=== PATIENT | male | born 1930 | race Caucasian/White ===

== ENCOUNTER → 2019-12-19 | Outpatient (CLI) | payer OTHER ==
[~2019-12-19] MED LIST: ASPIRIN81 M2 PO; CEPHALEXIN 500500 M1 PO; DILTIAZEM 24HR240 M1 PO; FLECAINIDE ACE100 MG PO; LISINOPRIL10 MG PO; PACERONE 200 M200 M1 PO; SIMVASTATIN40 MG PO; XARELTO20 MG PO
== END ==
LOC: SJCVC 14:34
PROVIDERS: ATTEND Internal Medicine
DX: R94.31 Abnormal electrocardiogram [ECG] [EKG] (principal); R00.1 Bradycardia, unspecified; I44.0 Atrioventricular block, first degree; E78.5 Hyperlipidemia, unspecified; I48.91 Unspecified atrial fibrillation

== ENCOUNTER → 2020-01-21 | Outpatient (CLI) | payer OTHER | LOC: SJCVCIMAG 08:17 | PROVIDERS: ATTEND Internal Medicine | DX: I08.8 Other rheumatic multiple valve diseases (principal); I11.9 Hypertensive heart disease without heart failure; I77.810 Thoracic aortic ectasia; R00.1 Bradycardia, unspecified; I48.91 Unspecified atrial fibrillation; E11.9 Type 2 diabetes mellitus without complications; E78.5 Hyperlipidemia, unspecified; Z87.891 Personal history of nicotine dependence ==

== ENCOUNTER → 2020-06-02 | Outpatient (CLI) | payer OTHER | LOC: SJCVC 10:55 | PROVIDERS: ATTEND Internal Medicine | DX: I10 Essential (primary) hypertension (principal); I48.0 Paroxysmal atrial fibrillation; E11.9 Type 2 diabetes mellitus without complications; E78.5 Hyperlipidemia, unspecified; Z87.891 Personal history of nicotine dependence; Z79.01 Long term (current) use of anticoagulants; Z79.82 Long term (current) use of aspirin; Z79.899 Other long term (current) drug therapy; Z82.49 Family history of ischemic heart disease and other diseases of the circulatory system ==

== ENCOUNTER → 2020-12-17 | Outpatient (CLI) | payer OTHER | LOC: SJCVC 09:59 | PROVIDERS: ATTEND Internal Medicine | DX: R94.31 Abnormal electrocardiogram [ECG] [EKG] (principal); I45.10 Unspecified right bundle-branch block; R00.1 Bradycardia, unspecified; I48.0 Paroxysmal atrial fibrillation; E78.5 Hyperlipidemia, unspecified; E11.9 Type 2 diabetes mellitus without complications; Z87.891 Personal history of nicotine dependence; Z79.01 Long term (current) use of anticoagulants; Z79.899 Other long term (current) drug therapy ==

== ENCOUNTER → 2021-01-29 | Outpatient (CLI) | payer OTHER | LOC: SJCVC 14:46 | PROVIDERS: ATTEND Internal Medicine | DX: R94.31 Abnormal electrocardiogram [ECG] [EKG] (principal); I44.0 Atrioventricular block, first degree; I45.10 Unspecified right bundle-branch block; I48.0 Paroxysmal atrial fibrillation; R00.1 Bradycardia, unspecified; I10 Essential (primary) hypertension; E78.5 Hyperlipidemia, unspecified; E11.9 Type 2 diabetes mellitus without complications; Z87.891 Personal history of nicotine dependence; Z82.49 Family history of ischemic heart disease and other diseases of the circulatory system; Z79.899 Other long term (current) drug therapy ==